=== PATIENT | male | born 1940 | race Caucasian/White ===

== ENCOUNTER 2017-04-05 11:03 | Day surgery (SDC) | payer MEDICARE, OTHER ==
[~2017-04-05] VITALS: Ht 172.7 cm; Wt 79.1 kg
[~2017-04-05 11:03] MED LIST: ALLO100T30 PO; ASPI-496 PO; ATOR40TA78 PO; BUPIVACAINE/PF 0.5% ONE; OMEP20TA62 PO; PARO10TA3 PO; PRED10TA PO; ROPI0.2537 PO
[2017-04-05 11:30] VITALS: BP 129/80
[2017-04-05] MEDS ORDERED: LACTATED RINGERS 1,000 ML IV SCH (11:32)
[2017-04-05] MEDS ORDERED: MIDAZOLAM 1 MG/ML, 2ML ONE (11:55)
[2017-04-05] MEDS ORDERED: FENTANYL PF 100 MCG/2ML ONE ×2 (11:55)
[2017-04-05] MEDS ORDERED: PROPOFOL 10 MG/ML, 20ML ONE (11:56)
[2017-04-05] MEDS ORDERED: ROCURONIUM 10 MG/ML,10ML ONE (11:57)
[2017-04-05] MEDS ORDERED: CEFAZOLIN 1,000 MG ONE ×2 (11:58)
[2017-04-05] MEDS ORDERED: SODIUM CHLORIDE 0.9% PF 10ML ONE (11:58)
[2017-04-05] MEDS ORDERED: GLYCOPYRROLATE 0.2MG/1ML, 5ML ONE (11:59)
[2017-04-05] MEDS ORDERED: NEOSTIGMINE 1 MG/ML, 10ML ONE (11:59)
[2017-04-05] MEDS ORDERED: HEPARIN 1,000 UNITS/ML, 10ML ONE (12:42)
[2017-04-05] MEDS ORDERED: FENTANYL PF 100 MCG/2ML IV PRN (13:00)
[2017-04-05] MEDS ORDERED: LABETALOL 5MG/ML, 20ML IV PRN (13:00)
[2017-04-05] MEDS ORDERED: ACETAMINOPHEN 325 MG TABLET PO PRN (13:00)
[2017-04-05] MEDS ORDERED: hydrALAzine 20 MG/ML, 1ML IV PRN (13:00)
[2017-04-05] MEDS ORDERED: PROMETHAZINE 25 MG/ML, 1ML IV PRN (13:00)
[2017-04-05] MEDS ORDERED: HYDROmorphone 1 MG/ML, 1ML IV PRN (13:00)
[2017-04-05] MEDS ORDERED: MEPERIDINE/PF 25MG/0.5ML IVPush PRN (13:00)
[2017-04-05] MEDS ORDERED: OXYcodone 5 MG/5 ML ORAL.SOL UDC PO PRN (13:00)
[2017-04-05] MEDS ORDERED: ONDANSETRON 2MG/ML, 2ML IVPush PRN (13:00)
[2017-04-05] MEDS ORDERED: ACETAMINOPHEN 650 MG/20.3 ML UDC ONE (14:04)
[2017-04-05] MEDS ORDERED: OXYcodone 5 MG/5 ML ORAL.SOL UDC ONE (14:05)
== END 2017-04-05 16:10 | disposition home or self-care (01) ==
LOC: OUT 11:03
PROVIDERS: ATTEND Surgery
DX: Z45.2 Encounter for adjustment and management of vascular access device (principal); C18.9 Malignant neoplasm of colon, unspecified; Z88.0 Allergy status to penicillin; Z79.82 Long term (current) use of aspirin
CPT/HCPCS: 36561; 77001; 93005; C1788; J0690; J1644; J2250; J2704; J2710; J3010; J3490; J7120